=== PATIENT | male | born 1965 | race Two or more races ===

== ENCOUNTER 2020-03-02 12:36 | Outpatient (CLI) | payer OTHER | END 2020-03-02 12:51 | disposition home or self-care (01) | LOC: TOM 12:36 | DX: R31.0 Gross hematuria (principal); N20.0 Calculus of kidney ==

== ENCOUNTER 2020-05-19 12:07 | Day surgery (SDC) | payer OTHER | END 2020-05-19 15:20 | disposition home or self-care (01) | LOC: CIR.AMB 12:07 | PROVIDERS: ATTEND Urology | DX: N20.0 Calculus of kidney (principal); Z20.828 Contact with and (suspected) exposure to other viral communicable diseases ==

== ENCOUNTER 2020-05-20 23:51 | Emergency (ER) | payer OTHER ==
[~2020-05-20] VITALS: Ht 162.6 cm; Wt 61.7 kg
[2020-05-21] MEDS ORDERED: KETO10TA2 PO (06:07)
== END 2020-05-21 06:21 | disposition home or self-care (01) ==
LOC: ER 23:51
DX: R10.31 Right lower quadrant pain (principal)

== ENCOUNTER 2020-05-26 09:56 | Outpatient (CLI) | payer OTHER | END 2020-05-26 10:02 | disposition home or self-care (01) | LOC: RAD 09:56 | PROVIDERS: ATTEND Urology | DX: N20.0 Calculus of kidney (principal) ==

== ENCOUNTER → 2020-05-26 | Outpatient (CLI) | payer OTHER ==
[~2020-05-26] MED LIST: KETO10TA2 PO
== END | disposition home or self-care (01) ==
LOC: LAB 11:38
PROVIDERS: ATTEND Urology
DX: D62 Acute posthemorrhagic anemia (principal)